=== PATIENT | male | born 2000 | race Caucasian/White ===

== ENCOUNTER 2021-02-24 13:03 | Outpatient (REF) | payer MEDICAID, SELFPAY ==
[2021-02-24 14:58] LABS: Alanine Aminotransferase 24 U/L (0-40); Albumin Level 4.2 g/dL (3.5-5.0); Alkaline Phosphatase 116 U/L (39-117); Anion Gap 12 (12-20); Aspartate Amino Transferase 19 U/L (5-37); Bilirubin Direct 0.4 mg/dL (0.0-0.5); Bilirubin Total 1.3 mg/dL (0.0-1.0); Blood Urea Nitrogen 11 mg/dL (9-16); Calcium 9.6 mg/dL (8.4-10.2); Carbon Dioxide 24 mmol/L (22-29); Chloride 107 mmol/L (96-108); Estimated Glomerular Filt Rate > 60; Gamma Glutamyl Transpeptidase 19 U/L (11-51); Glucose Random 129 mg/dL (60-115); Potassium 4.5 mmol/L (3.3-5.1); Sodium 138 mmol/L (135-145)
== END 2021-02-24 13:04 | disposition home or self-care (01) ==
LOC: HO.LAB 13:03
PROVIDERS: PCP Nurse Practitioner Primary Care; Referring Provider Nurse Practitioner Primary Care; Visit Provider Nurse Practitioner
DX: E80.6 Other disorders of bilirubin metabolism (principal)
CPT/HCPCS: 36415; 80053; 82248; 82977

== ENCOUNTER 2023-02-28 15:10 | Outpatient (REF) | payer MEDICAID, SELFPAY ==
--- NOTE | ~2023-02-28 | XR_ITS ---
EXAMINATION: XR ELBOW, RIGHT CLINICAL INFORMATION: Injury. COMPARISON: None available. TECHNIQUE: AP, lateral, and oblique views of the right elbow. FINDINGS: Minimally displaced lateral radial head fracture with intra-articular extension. Very subtle cortical irregularity along the anterior surface of the coronoid process on the lateral view. Possible small anterior joint effusion. No unexpected radiopaque foreign bodies. XR/XR elbow RT min 3V IMPRESSION: 1. Minimally displaced lateral radial head fracture with intra-articular extension. 2. Equivocal very subtle cortical irregularity along the anterior surface of the coronoid process on the lateral view, recommend correlation with point tenderness.
== END 2023-02-28 15:11 | disposition home or self-care (01) ==
LOC: HO.HHCX 15:10
PROVIDERS: Visit Provider Emergency Medicine
DX: S59.901A Unspecified injury of right elbow, initial encounter (principal)
CPT/HCPCS: 73080

== ENCOUNTER 2023-03-13 14:36 | Outpatient (AMB) | payer MEDICAID, SELFPAY ==
--- NOTE | 2023-03-13 14:42 | A.OFFVIS_ITS ---
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 Patient reports that he slipped on wet grass causing him to fall on an outstretched arm. He presented to [facility] the following day where xrays were taken and placed in a sling. Currently he is unable to lift heavy items. Limited ROM. Denies numbness or tingling. Finds relief with Tylenol. Allergies No Known Allergies Allergy (Verified 03/13/23 15:00) HPI fc- displaced fx of head of rt radius HPI Details 22-year-old right hand dominant male who presents to the office today for right elbow injury s/p slipping on wet grass and sustaining a fall on outstretched hand, 02/27/23. He was seen at our office the next day where x-rays were performed and he was placed in a sling. He states he has pain and limited ROM in his elbow and is unable to lift heavy objects. He denies any numbness or tingling. He finds relief with Tylenol. PFSH Family History (System 03/14/21 @ 08:42 by Adelina Lakhani) Mother Diabetes Social History (Updated 03/13/23 @ 15:00 by Cassi De Leon Harrison) Patient Tobacco Use Status: Never used Tobacco Current occupational status: unemployed Current occupation: right hand dominant Review of Systems Const All systems reviewed & are unremarkable except as noted in HPI and below Physical Exam Vital Signs: BMI result Body Mass Index 33.3 Extrem Other: Right elbow: Skin intact, no open wounds. Mild tenderness over the radial head. No pain over the olecranon. No difficulty with flexion or extension, mild discomfort with supination and pronation. No pain along the distal radius or proximal humerus. Sensation and peripheral pulses present. Office Procedures Fracture Care Fracture Billing Code: Fracture Billing Code Results Reviewed Results Reviewed: Xrays were obtained in the office today and personally reviewed by me of the right elbow show non displaced intra-articular radial head fracture Assessment & Plan Assessment & Plan (1) Right radial head fracture: Code(s): S52.121A - Displaced fracture of head of right radius, initial encounter for closed fracture Qualifiers: Encounter type: initial encounter Fracture type: closed Fracture alignment: nondisplaced Qualified Code(s): S52.124A - Nondisplaced fracture of head of right radius, initial encounter for closed fracture Plan He will use the sling as needed for comfort. I did encourage him to work on ROM of elbow but to avoid supination or pronation for the next 6 weeks. He will see me back in 4 weeks with new x-rays, sooner if needed. Orders: Orders XR elbow RT min 3V Today M25.521 - Pain in right elbow Patient Instructions: Scribed for Yogesh Leon PA-C, by Jerry Milligan medical research assistant, on 03/13/2023 at 2:30 PM EST. Yogesh Jurado PA-C, have personally reviewed and agree with the information entered by the scribe. Coding Level of Care Code New Pt Level 3 (15026) Diagnoses Closed nondisplaced fracture of head of right radius, initial encounter S52.124A Encounter type: initial encounter Fracture type: closed Fracture alignment: nondisplaced CPT Codes Fracture Care - Fracture Billing Code: Fracture Billing Code ([id number])
[2023-03-13 15:01] VITALS: BMI 33.3
== END 2023-03-13 15:14 | disposition home or self-care (01) ==
PROVIDERS: PCP Nurse Practitioner Primary Care; Visit Provider Physician Assistant
DX: S52.121A Displaced fracture of head of right radius, initial encounter for closed fracture (principal)
CPT/HCPCS: 99203

== ENCOUNTER 2023-03-13 16:01 | Outpatient (REF) | payer MEDICAID, SELFPAY ==
--- NOTE | ~2023-03-13 | XR_ITS ---
EXAMINATION: XR ELBOW, RIGHT CLINICAL INFORMATION: Pain in right elbow COMPARISON: 02/20/2023 TECHNIQUE: AP, lateral, and oblique views of the right elbow. FINDINGS: Redemonstration of minimally displaced lateral radial head fracture with intra-articular extension. No definitive bridging callus is appreciated. Joint effusion present. Redemonstration of cortical irregularity along the anterior surface of the coronoid process on the lateral view. Evaluation comparison is limited due to differences in patient positioning, particularly as the lateral view is not a true 90 degree position. XR/XR elbow RT min 3V IMPRESSION: 1. Redemonstration of minimally displaced lateral radial head fracture with intra-articular extension. No definitive bridging callus is appreciated. 2. Redemonstration of subtle cortical step-off/irregularity along the anterior surface of the coronoid process on the lateral view. Evaluation comparison is limited due to differences in patient positioning, particularly as the lateral view is not a true 90 degree position.
== END 2023-03-13 16:02 | disposition home or self-care (01) ==
LOC: HO.HOSX 16:01
PROVIDERS: Visit Provider Physician Assistant
DX: S52.124A Nondisplaced fracture of head of right radius, initial encounter for closed fracture (principal)
CPT/HCPCS: 73080; 99202; 99203

== ENCOUNTER 2023-04-10 12:21 | Outpatient (REF) | payer MEDICAID, SELFPAY ==
--- NOTE | ~2023-04-10 | XR_ITS ---
EXAMINATION: XR ELBOW, RIGHT CLINICAL INFORMATION: Pain in right elbow COMPARISON: 02/28/2023, 03/13/2023. TECHNIQUE: AP, lateral, and oblique views of the right elbow. FINDINGS: Redemonstration of minimally displaced lateral radial head fracture with intra-articular extension. Fracture line appears more conspicuous with mild displacement when compared with prior exams. No definitive bridging callus is appreciated. Joint effusion present. The area of subtle cortical irregularity identified on the anterior surface of the coronoid process on the lateral view, best appreciated on exam of February 28, 2023, remains difficult to assess due to patient obliquity and overlapping bony structures. Correlation with clinical exam recommended to determine further management. XR/XR elbow RT min 3V IMPRESSION: Redemonstration of minimally displaced lateral radial head fracture with intra-articular extension. Fracture line appears more conspicuous with mild displacement when compared with prior exams. No definitive bridging callus is appreciated. 2. The area of subtle cortical irregularity identified on the anterior surface of the coronoid process on the lateral view, best appreciated on exam of February 28, 2023, remains difficult to assess due to patient obliquity and overlapping bony structures. Correlation with clinical exam recommended to determine further management. .
== END 2023-04-10 12:22 | disposition home or self-care (01) ==
LOC: HO.HOSX 12:21
PROVIDERS: Visit Provider Physician Assistant
DX: S52.124D Nondisplaced fracture of head of right radius, subsequent encounter for closed fracture with routine healing (principal); M25.521 Pain in right elbow; X58.XXXD Exposure to other specified factors, subsequent encounter
CPT/HCPCS: 73080; 99212

== ENCOUNTER 2023-04-10 14:31 | Outpatient (AMB) | payer MEDICAID, SELFPAY ==
[2023-04-10 14:43] VITALS: BMI 33.3
--- NOTE | 2023-04-10 14:43 | A.OFFVIS_ITS ---
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 Patient reports pain with lifting items and applying pressure to his hands. Allergies No Known Allergies Allergy (Verified 04/10/23 14:50) HPI OV- R Radial head fracture-four week follow up HPI Details 22-year-old right hand dominant male who returns to the office today for a follow-up of right elbow fracture, 02/27/23. He continues to have pain in her right elbow with lifting items and applying pressure to his hands. PFSH Family History (System 03/14/21 @ 08:42 by Adelina Lakhani) Mother Diabetes Social History Patient Tobacco Use Status: Never used Tobacco Current occupational status: unemployed Current occupation: right hand dominant Review of Systems Const All systems reviewed & are unremarkable except as noted in HPI and below Physical Exam Vital Signs: BMI result Body Mass Index 33.3 Extrem Other: Right elbow: Skin intact, no open wounds. Mild tenderness over the radial head. No pain over the olecranon. No difficulty with flexion or extension, mild discomfort with supination and pronation. No pain along the distal radius or proximal humerus. Sensation and peripheral pulses present. Results Reviewed Results Reviewed: X-rays of the right elbow obtained in the office today show redemonstration of radial head fracture with minimal displacement. Assessment & Plan Assessment & Plan (1) Right radial head fracture: Code(s): S52.121A - Displaced fracture of head of right radius, initial encounter for closed fracture Qualifiers: Encounter type: initial encounter Fracture alignment: nondisplaced Fracture type: closed Qualified Code(s): S52.124A - Nondisplaced fracture of head of right radius, initial encounter for closed fracture Plan We reviewed the images today. I did explain that the fracture is still visible however it is not displaced to the extent where he needs any surgical intervention. I do recommend he avoids any supination and pronation against resistance. He should avoid any type of lifting, pushing, pulling or carrying greater than a cellphone to reduce the risk of displacement. I would like to see him back in 4-6 weeks with x-rays, sooner if needed. Orders: Orders XR elbow RT min 3V 04/10/23 M25.521 - Pain in right elbow Patient Instructions: Scribed for Yogesh Leon PA-C, by Jerry Milligan medical van driver, on 04/10/2023 at 2:45 PM EST. I, Yogesh Leon PA-C, have personally reviewed and agree with the information entered by the scribe. Coding Level of Care Code Global (73515) Diagnoses Closed nondisplaced fracture of head of right radius, initial encounter S52.124A Encounter type: initial encounter Fracture alignment: nondisplaced Fracture type: closed
== END 2023-04-10 14:57 | disposition home or self-care (01) ==
PROVIDERS: PCP Nurse Practitioner Primary Care; Visit Provider Physician Assistant
DX: S52.124A Nondisplaced fracture of head of right radius, initial encounter for closed fracture (principal)
CPT/HCPCS: 99213

== ENCOUNTER 2023-05-09 12:40 | Outpatient (REF) | payer MEDICAID, SELFPAY | END 2023-05-09 12:41 | disposition home or self-care (01) | LOC: HO.HOSX 12:40 | PROVIDERS: Visit Provider Physician Assistant | DX: Z13.89 Encounter for screening for other disorder (principal) ==

== ENCOUNTER 2023-06-26 13:45 | Outpatient (REF) | payer MEDICAID, SELFPAY ==
--- NOTE | ~2023-06-26 | XR_ITS ---
EXAMINATION: XR ELBOW, RIGHT CLINICAL INFORMATION: Pain in right elbow COMPARISON: Right elbow 04/10/2023 TECHNIQUE: AP, lateral, and oblique views of the right elbow. FINDINGS: Again seen is a minimally displaced lateral radial head fracture with intra-articular extension. The fracture line is slightly blurred, however, clearly still evident, particularly on the oblique view. Interval decrease in size of joint effusion. An area of subtle is cortical irregularity is identified on the anterior surface of the coronoid process on the lateral view, best appreciated on the 02/28/2023 exam. This appears more prominent compared to the prior study of 02/28/2023. XR/XR elbow RT min 3V IMPRESSION: 1. Partially healing fracture of the lateral radial head with intra-articular extension. 2. Subtle cortical step-off/irregularity along the anterior surface of the coronoid process on the lateral view appears slightly more prominent.
== END 2023-06-26 13:46 | disposition home or self-care (01) ==
LOC: HO.HOSX 13:45
PROVIDERS: Visit Provider Physician Assistant
DX: M25.521 Pain in right elbow (principal); S52.124D Nondisplaced fracture of head of right radius, subsequent encounter for closed fracture with routine healing; X58.XXXD Exposure to other specified factors, subsequent encounter
CPT/HCPCS: 73080; 99212

== ENCOUNTER 2023-06-26 13:46 | Outpatient (AMB) | payer MEDICAID, SELFPAY ==
--- NOTE | 2023-06-26 14:08 | A.OFFVIS_ITS ---
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 Xrays updated while in office. Patient reports he is doing well, denies pain. He has discomfort with movement of arm, stating he feels a pop in his elbow area. Allergies No Known Allergies Allergy (Verified 06/26/23 14:10) HPI ov-Rt radial head fracture w/ xrays HPI Details 23-year-old right hand dominant male who returns to the office today for a follow-up of right elbow fracture, 02/27/23. He states he has no pain however he does c/o pain with movement of the arm and discomfort with lifting. He also reports he feels a ?pop? in his elbow area. He has no other concerns today. PFSH Family History (System 03/14/21 @ 08:42 by Adelina Lakhani) Mother Diabetes Social History Patient Tobacco Use Status: Never used Tobacco Current occupational status: unemployed Current occupation: right hand dominant Review of Systems Const All systems reviewed & are unremarkable except as noted in HPI and below Physical Exam Vital Signs: BMI result Body Mass Index 33.3 Extrem Other: Right elbow: Normal to inspection. He has no pain with elbow flexion or extension. No pain with supination or pronation. He has no tenderness over the radial head. NVI. Results Reviewed Results Reviewed: X-rays of the right elbow obtained in the office today show redemonstration of radial head fracture with minimal displacement and interval healing Assessment & Plan Assessment & Plan (1) Right radial head fracture: Code(s): S52.121A - Displaced fracture of head of right radius, initial encounter for david sed fracture Qualifiers: Encounter type: subsequent encounter Fracture alignment: nondisplaced Fracture type: closed Fracture healing: with routine healing Qualified Code(s): S52.124D - Nondisplaced fracture of head of right radius, subsequent encounter for closed fracture with routine healing Plan He will continue to increase activity as tolerated using caution with any type of lifting. If he develops any discomfort, he will contact the office, otherwise he will see us back in 6 weeks for final x-rays, sooner if needed. Orders: Orders XR elbow RT min 3V 05/09/23 M25.521 - Pain in right elbow XR elbow RT min 3V Today M25.521 - Pain in right elbow Patient Instructions: Scribed for Yogesh Leon PA-C, by Jerry Milligan medical staff services manager, on 06/26/2023 at 1:45 PM EST. I, Yogesh Leon PA-C, have personally reviewed and agree with the information entered by the scribe. Coding Level of Care Code Global (56020) Diagnoses Closed nondisplaced fracture of head of right radius with routine healing, subsequent encounter S52.124D Encounter type: subsequent encounter Fracture alignment: nondisplaced Fracture type: closed Fracture healing: with routine healing
[2023-06-26 14:15] VITALS: BMI 33.3
== END 2023-06-26 14:22 | disposition home or self-care (01) ==
PROVIDERS: PCP Nurse Practitioner Primary Care; Visit Provider Physician Assistant
DX: S52.124D Nondisplaced fracture of head of right radius, subsequent encounter for closed fracture with routine healing (principal)
CPT/HCPCS: 99213

== ENCOUNTER 2023-07-24 13:24 | Outpatient (REF) | payer MEDICAID, SELFPAY ==
[2023-07-24 16:02] LABS: MANUAL DIFF FLAG NO
[2023-07-24 16:13] LABS: Basophils Absolute Auto 0.1 X10*3/uL (0.0-0.2); Basophils Percent Auto 0.8 % (0-2); Eosinophils Absolute Auto 0.2 X10*3/uL (0.0-0.4); Eosinophils Percent Auto 2.3 % (0-4); Hematocrit 45.3 % (42.0-52.0); Hemoglobin 15.4 g/dl (14.0-18.0); Imm Gran Abs Auto 0.02 X10*3/uL (0.00-0.03); Imm Gran Pct Auto 0.3 % (0.0-0.4); Lymphocytes Absolute Auto 2.5 X10*3/uL (1.2-4.9); Lymphocytes Percent Auto 38.3 % (20-40); Mean Corpuscular Hemoglobin 29.1 pg (27.0-33.0); Mean Corpuscular Volume 85.5 fL (80.0-98.0); Mean Platelet Volume 9.6 fL (9.4-12.4); Monocytes Absolute Auto 0.5 X10*3/uL (0.1-1.2); Neutrophils Absolute Auto 3.4 x10*3/uL (2.0-8.3); Neutrophils Percent Auto 50.3 % (45-73); Platelet Count 299 X10*3/uL (160-400); White Blood Count 6.6 X10*3/uL (4.8-10.8)
[2023-07-24 16:30] LABS: Alanine Aminotransferase 14 U/L (0-40); Albumin Level 4.1 g/dL (3.5-5.0); Alkaline Phosphatase 92 U/L (39-117); Anion Gap 14 (12-20); Aspartate Amino Transferase 14 U/L (5-37); Bilirubin Total 1.1 mg/dL (0.0-1.0); Blood Urea Nitrogen 12 mg/dL (9-16); Calcium 9.2 mg/dL (8.4-10.2); Carbon Dioxide 26 mmol/L (22-29); Chloride 106 mmol/L (96-108); Cholesterol 195 mg/dL (<200); Estimated Glomerular Filt Rate > 60; Glucose Random 93 mg/dL (60-115); HDL Cholesterol 32 mg/dL (>40); LDL Cholesterol Calculated 137 mg/dL (<100); Potassium 4.1 mmol/L (3.3-5.1); Sodium 142 mmol/L (135-145); Triglycerides 134 mg/dL (<150)
== END 2023-07-24 13:25 | disposition home or self-care (01) ==
LOC: HO.HHCL 13:24
PROVIDERS: Visit Provider Nurse Practitioner Family
DX: Z13.89 Encounter for screening for other disorder (principal)
CPT/HCPCS: 36415; 80053; 80061; 84443; 85025

== ENCOUNTER 2023-08-07 06:39 | Outpatient (REF) | payer MEDICAID, SELFPAY ==
--- NOTE | ~2023-08-07 | XR_ITS ---
EXAMINATION: XR ELBOW, RIGHT CLINICAL INFORMATION: Pain in right elbow COMPARISON: Right elbow 06/26/2023, 04/10/2023, 02/28/2023 TECHNIQUE: AP, lateral, and oblique views of the right elbow. FINDINGS: Again seen is a minimally displaced radial head fracture with intra-articular extension. The fracture line is slightly blurred, however, still clearly evident on the oblique view. Interval decrease in size of joint effusion. Area of subtle cortical irregularities identified on the anterior surface of the coronoid process on the lateral view, best identified on 02/28/2023. This appears similar to the prior study. XR/XR elbow RT min 3V IMPRESSION: 1. Partially healing fracture of the radial head with intra-articular extension. 2. No significant interval change and subtle cortical step-off/irregularity along the anterior surface of the coronoid process on the lateral view.
== END 2023-08-07 06:40 | disposition home or self-care (01) ==
LOC: HO.HOSX 06:39
PROVIDERS: Visit Provider Physician Assistant
DX: M25.521 Pain in right elbow (principal); S52.124D Nondisplaced fracture of head of right radius, subsequent encounter for closed fracture with routine healing; X58.XXXD Exposure to other specified factors, subsequent encounter
CPT/HCPCS: 73080; 99212

== ENCOUNTER 2023-08-07 13:51 | Outpatient (AMB) | payer MEDICAID, SELFPAY ==
--- NOTE | 2023-08-07 13:58 | A.OFFVIS_ITS ---
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 Xrays updated while in office. Patient reports he is doing well, states mild discomfort in his forearm. Allergies No Known Allergies Allergy (Verified 08/07/23 14:02) HPI ov- f/u right elbow x xrays HPI Details 23-year-old right hand dominant male who returns to the office today for a follow-up of right elbow fracture, 02/27/23. He states he has mild discomfort in his forearm however he is doing well overall. he has no other concerns today. PFSH Family History (System 03/14/21 @ 08:42 by Adelina Lakhani) Mother Diabetes Social History Patient Tobacco Use Status: Never used Tobacco Current occupational status: unemployed Current occupation: right hand dominant Review of Systems Const All systems reviewed & are unremarkable except as noted in HPI and below Physical Exam Vital Signs: BMI result Body Mass Index 33.3 Extrem Other: Right elbow: No pain in the elbow with supination or pronation. No pain along the radial head or the epicondyle. Results Reviewed Results Reviewed: X-rays of the right elbow obtained in the office today show redemonstration of radial head fracture with minimal displacement and interval healing Assessment & Plan Assessment & Plan (1) Right radial head fracture: Code(s): S52.121A - Displaced fracture of head of right radius, initial encounter for closed fracture Qualifiers: Encounter type: subsequent encounter Fracture alignment: nondisplaced Fracture healing: with routine healing Fracture type: closed Qualified Code(s): S52.124D - Nondisplaced fracture of head of right radius, subsequent encounter for closed fracture with routine healing Plan He will increase activity as tolerated. If symptoms persist or worsens, patient will contact the office, otherwise follow-up as needed. Orders: Orders XR elbow RT min 3V 08/07/23 M25.521 - Pain in right elbow Patient Instructions: Scribed for Yogesh Leon PA-C, by Jerry Milligan medical officer psychiatry, on 08/07/2023 at 1:45 PM Yoegsh ANGUIANO PA-C, have personally reviewed and agree with the information entered by the scribe. Coding Level of Care Code Est Pt Level 3 (98204) Diagnoses Closed nondisplaced fracture of head of right radius with routine healing, subsequent encounter S52.124D Encounter type: subsequent encounter Fracture alignment: nondisplaced Fracture healing: with routine healing Fracture type: closed
[2023-08-07 14:02] VITALS: BMI 33.3
== END 2023-08-07 14:09 | disposition home or self-care (01) ==
PROVIDERS: PCP Nurse Practitioner Primary Care; Visit Provider Physician Assistant
DX: S52.124D Nondisplaced fracture of head of right radius, subsequent encounter for closed fracture with routine healing (principal)
CPT/HCPCS: 99213

== ENCOUNTER 2024-04-10 15:56 | Outpatient (REF) | payer MEDICAID, SELFPAY ==
[2024-04-10 18:40] LABS: Alanine Aminotransferase 21 U/L (0-40); Albumin Level 4.3 g/dL (3.5-5.0); Alkaline Phosphatase 86 U/L (39-117); Anion Gap 14 (12-20); Aspartate Amino Transferase 21 U/L (5-37); Bilirubin Direct 0.2 mg/dL (0.0-0.5); Bilirubin Total 0.8 mg/dL (0.0-1.0); Blood Urea Nitrogen 13 mg/dL (9-16); Calcium 9.9 mg/dL (8.4-10.2); Carbon Dioxide 23 mmol/L (22-29); Chloride 106 mmol/L (96-108); Cholesterol 217 mg/dL (<200); Estimated Glomerular Filt Rate > 60; Glucose Random 102 mg/dL (60-115); HDL Cholesterol 34 mg/dL (>40); LDL Cholesterol Calculated 158 mg/dL (<100); Sodium 139 mmol/L (135-145); Total Protein 7.5 g/dL (6.5-8.0); Triglycerides 129 mg/dL (<150)
[2024-04-11 03:20] LABS: Estimated Average Glucose 108 mg/dL; Hemoglobin A1C 142.3126 umol/L; Hemoglobin A1c % 5.4 % (<6.0); Total Hemoglobin (HGBA1C) 4034.6064 umol/L
== END 2024-04-10 15:57 | disposition home or self-care (01) ==
LOC: HO.HHCL 15:56
PROVIDERS: Visit Provider Nurse Practitioner Primary Care
DX: Z00.00 Encounter for general adult medical examination without abnormal findings (principal); R73.01 Impaired fasting glucose
CPT/HCPCS: 36415; 80048; 80061; 80076; 83036; 84443